=== PATIENT | female | born 1995 | race Two or more races ===

== ENCOUNTER 2021-11-03 04:23 | Emergency (ER) | payer MEDICAID ==
[~2021-11-03] VITALS: Ht 162.6 cm; Wt 88.5 kg
--- NOTE | 2021-11-03 04:40 | NUR ---
BIBS A/O X 4 C/O NAUSEA/VOMITTING +MISSED PERIOD PT REQUESTING TEST
--- NOTE | 2021-11-03 05:51 | NUR ---
PT DIACHARGED IN STABLE CONDITION
[2021-11-03 05:52] VITALS: BP 121/77
== END 2021-11-03 05:53 | disposition home or self-care (01) ==
LOC: ER 04:35
DX: R11.2 Nausea with vomiting, unspecified (principal); R51.9 Headache, unspecified; Z60.2 Problems related to living alone
CPT/HCPCS: 84703-TC